=== PATIENT | female | born 1945 | race Caucasian/White ===

== ENCOUNTER → 2019-03-08 | Outpatient (CLI) | payer MEDICARE, BC, OTHER ==
--- NOTE | 2019-03-08 10:42 | REP ---
MRI LEFT LOWER LEG: Multiple sequences obtained in the axial, coronal and sagittal planes. No IV contrast was administered. The tibia and fibula demonstrate normal bone marrow signal. There is no bone marrow edema or occult fracture. No bone lesion is seen. No abnormal signal is seen in the visualized muscles and tendons. No muscle tear is seen. There is no fluid collection. No cystic or solid nodule is seen. IMPRESSION: Negative MRI of the left lower leg. Electronically Signed by Andriy Sanchez MD 03/08/2019 06:41 P
--- NOTE | 2019-03-08 14:16 | REPVR ---
PROCEDURE INFORMATION: Exam: MR Lumbar Spine Without Contrast. Exam date and time: 03/08/2019 8:28 AM Clinical history: 73 years old, female; Other: Parastheia of skin and back pain; Additional info: R20 paresthesia of skin / [id number] pn lt lower leg TECHNIQUE: Imaging protocol: Multiplanar magnetic resonance images of the lumbar spine without intravenous contrast. COMPARISON: No relevant prior studies available. FINDINGS: Vertebrae: Unremarkable. There is loss of signal within the discs on the T2-weighted sequences from L2-L5 reflecting disc desiccation. Spinal cord: Normal signal. No cord compression. Is noted at T12-L1. L1-L2: No significant disc disease. No significant spinal stenosis. L2-L3: No significant disc disease. No significant spinal stenosis. L3-L4: No significant disc disease. Mild facet arthropathy. No significant spinal stenosis. L4-L5: Narrowed intervertebral disc space. Circumferential annulus bulge.. Mild facet arthropathy. No significant spinal stenosis. L5-S1: No significant disc disease. No significant spinal stenosis. Soft tissues: Unremarkable. IMPRESSION: Mild to moderate degenerative disc disease at L4-5. No herniation or stenosis. 2. Mild facet arthropathy as described above. Electronically signed by: Jeannette Davidson On 03/08/2019 14:16:06 PM
== END ==
LOC: M PLARAD 08:26
PROVIDERS: ATTEND Orthopaedic Surgery Sports Medicine
DX: M79.662 Pain in left lower leg (principal); R20.2 Paresthesia of skin; Z85.3 Personal history of malignant neoplasm of breast; M51.36 Other intervertebral disc degeneration, lumbar region